=== PATIENT | female | born 1990 | race Caucasian/White ===

== ENCOUNTER 2018-03-30 16:14 | Observation (INO) ==
[2018-03-30 16:36] LABS: Amphetamine Screen,Urine Negative ng/mL (Cutoff=1000); Barbiturate Screen,Urine Negative ng/mL (Cutoff=200)
[2018-03-30 16:37] LABS: Benzodiazepines Screen,Urine Positive ng/mL (Cutoff=300); Cannabinoid Screen,Urine Negative ng/mL (Cutoff = 50); Cocaine Screen,Urine Negative ng/mL (Cutoff= 300); Opiate Screen,Urine Negative ng/mL (Cutoff=300); Phencyclidine Screen,Urine Negative ng/mL (Cutoff=25)
[2018-03-30 16:39] LABS: Bilirubin,Urine Negative (Negative); Blood,Urine Negative (Negative); Clarity,Urine Cloudy (Clear); Color,Urine Yellow (Yellow); Glucose,Urine (UA) Normal (Normal); Ketones,Urine Negative (Negative); Leukocyte Esterase,Urine Small (Negative); Nitrite,Urine Negative (Negative); Protein,Urine Negative (Neg-Trace); Specific Gravity,Urine 1.015 (1.010-1.025); Urobilinogen,Urine Normal (Normal)
[2018-03-30 16:40] LABS: Bacteria,Urine Few per hpf (None-Few); Hyaline Casts,Urine None Seen per lpf (None-Few); RBC,Urine 0-3 per hpf (0-3); Squamous Epithelial Cell,Urine Many per lpf (None-Few); WBC,Urine 15-30 per hpf (0-3)
[2018-03-30 17:33] LABS: Rubella IgG Antibody POSITIVE (POSITIVE); Varicella Zoster IgG Antibody Positive
--- NOTE | 2018-03-30 18:07 | OB/GYN Progress Note ---
Date of Encounter: 03/30/18 Time of Encounter: 18:01 - Assessment and Plan (1) 34 weeks gestation of Current Visit: Yes Status: Acute admitted for observation (2) No care in current Current Visit: Yes Status: Acute lab work and ultrasound today Patient to call office to follow up Patient declines waiting on social media strategist prior to discharge Qualifiers: Trimester: third trimester Qualified Code(s): O09.33 - Supervision of with insufficient care, third trimester (3) NST (non-stress test) reactive Current Visit: No Status: Resolved baseline 118 bpm moderate variability +15x15 accel no decels noted. Cat. 1 tracing Subjective - Subjective Principal diagnosis: Vaginal pressure, no care Interval history: Patient is a 27 y/o at 34w3d per ultrasound today. Patient presents to labor and delivery with complaints of vaginal pressure. Patient reports +FM, denies LOF, VB or contractions. Patient has not had care during this . Today all labs were drawn. Patient reports Valium 2 days ago. Patient report she is living with a friend at this time. Social work consult ordered. Patient states she also plans to go to [facility] tomorrow. Patient states pain is getting better. Antepartum ROS: movement normal, other (vaginal pressure), no loss of fluid, no vaginal bleeding, no contractions Objective - Vital Signs Vital Signs: Intake and Output 03/30/18 03/30/18 03/30/18 07:59 15:59 23:59 Other: Weight 61.5 kg Patient Weight 03/30/18 23:59 Weight 61.5 kg - Exam FHR: auscultation normal, category 1 FHR comments: 118 bpm moderate variability +15x15 accels no decels noted. No contractions noted. Cat. 1 tracing. Auscultation: bilateral: normal Abdomen: Present: normal appearance, soft, gravid Uterus: Present: normal, firm Cervical dilation: closed Cervix effacement: thick station: -1 - Labs Labs: Abnormal lab results Urine Clarity Cloudy (Clear) A 03/30/18 16:12 Ur Leukocyte Esterase Small (Negative) H 03/30/18 16:12 Urine Microscopic WBC 15-30 per hpf (0-3) H 03/30/18 16:12 Ur Squamous Epith Cells Many per lpf (None-Few) H 03/30/18 16:12 Ur Culture Indicated? NO. (NO) A 03/30/18 16:12 U Benzodiazepines Scrn Positive ng/mL ([id number]) H 03/30/18 16:12
[2018-03-30 18:19] LABS: HIV-1&2 Antibody & p24 Ag Nonreactive (Nonreactive); Hepatitis B Surface Antigen Nonreactive (Nonreactive)
== END 2018-03-30 18:47 | disposition home or self-care (01) ==
LOC: 1NENULAB
PROVIDERS: ADMIT Obstetrics & Gynecology; ATTEND Obstetrics & Gynecology

== ENCOUNTER 2018-04-24 11:34 | Inpatient (IN) ==
--- NOTE | 2018-04-24 12:12 | OB/GYN History & Physical ---
Date of Encounter: 04/24/18 Time of Encounter: 12:08 Assessment and Plan (1) and not yet delivered in third trimester Current visit: Yes Status: Acute (2) 37 weeks gestation of Current visit: Yes Status: Acute (3) Spontaneous rupture of membranes Current visit: Yes Status: Acute (4) Active labor at term Current visit: Yes Status: Acute We will admit the patient, get epidural when ready plan is to anticipate vaginal delivery (5) Substance abuse affecting in third trimester, antepartum Current visit: Yes Status: Acute History of Present Illness HPI: Ms. Figueroa is a 27 year old female 3 para 2 at 37-6/7 weeks who presented to labor and delivery by squad secondary to contractions and leaking of fluid. Patient states she woke up approximately 4 AM this morning had intercourse soon after that she started having cramping and some leaking of fluid patient states the contractions are every 2-3 minutes. Patient has not been examined in the office so we do not know if she was previously dilated. Patient is in the Subutex group. Patient states she is having gushes of fluid but not service just urine she was nitrazine and ferning positive. Patient is O +, rubella positive, GBS negative, Varicella positive. Past Med Surg Social Fam HX - Past Medical History Source: patient, old records reviewed Medical history: seizures Additional medical history: seizure x1 (pt states it was due to taking 2 different antidepressants at the same time) Psychiatric history: anxiety, depression - Past Surgical History Surgical History: other Additional surgical history: T&A, LEEP - Social History Smoking Status: Current every day smoker Smokeless Tobacco Status: No Alcohol use: none Drug use: other (On Subutex) Occupational status: unemployed Current living situation: Home - Independent Activity Level: Independent ambulation Recent Out of Country Travel Within the Last 8 Weeks: No Exposure or Possible Exposure to Illness During Travel: No - Family History Mother Adopted: No Living Status: Still Living Hx Family Cardiac Disorders: Yes (hypertension) Hx Family Endocrine Disorder: Yes (thyroid problems) - Additional Family History Additional family history: Family history noncontributory Obstetrical History - Pregnancies : 3 Para: 2 Term: 2 : 0 Ab's: 0 Livin Medications and Allergies 3 Allergy/AdvReac Type Severity Reaction Status Date / Time No Known Allergies Allergy Verified 08/17/15 21:15 Review of System OB All systems PM: reviewed and no additional remarkable complaints except as stated - Genitourinary Genitourinary: other (Been leaking fluid since 4 AM and cramping since 4 AM) Exam - Constitutional Constitutional: well developed, well nourished, moderate distress - HEENT HEENT: EOMI, PERRL, Mucus Membranes Moist - Neck Neck exam: full ROM - Lungs Respiratory exam: CTAB - Cardiovascular Cardiovascular exam: RRR - Abdomen Abdomen: Present: bowel sounds normal, gravid ( heart tones 140s reactive contractions every 2 minutes) - Vagina Vagina: Present: normal moisture (Sterile speculum exam performed and the patient revealed positive nitrazine and positive ferning) - Cervix Dilation: 4 Effacement: 80 Station: -1 - Adnexa Adnexa: bilateral: normal Results All other labs normal.
[2018-04-24] MEDS ORDERED: Metoclopramide 10 MG/2 ML VIAL IVP PRN (12:17)
[2018-04-24] MEDS ORDERED: Ondansetron 4 MG/2 ML VIAL IVP PRN (12:17)
[2018-04-24] MEDS ORDERED: Naloxone 0.4 MG/ML INJ IVP PRN (12:17)
[2018-04-24] MEDS ORDERED: Famotidine 20 MG/2 ML VIAL IVP PRN (12:17)
[2018-04-24] MEDS ORDERED: Ringers Solution, Lactated 1,000 ML IVC SCH (12:30)
[2018-04-24] MEDS ORDERED: Ringers Solution, Lactated 1,000 ML ONE (12:47)
[2018-04-24] MEDS ORDERED: Bupivacaine-MPF 0.25% 10 ML VIAL ONE (12:57)
[2018-04-24] MEDS ORDERED: Lidocaine -MPF 1% 5 ML AMPUL ONE (12:57)
[2018-04-24] MEDS ORDERED: Epidural Premix (fent/bupiv) 110 ML EP ONE (12:59)
[2018-04-24] MEDS ORDERED: Nicotine 21 MG PATCH.TD24 TD SCH (13:00)
[2018-04-24 13:05] LABS: Basophils % 0.4 %; Eosinophils # 0.1 K/mcL (0.0-0.6); Hemoglobin 10.7 g/dL (11.5-15.4); Immature Granulocytes % 0.2 % (0-4); Lymphocytes # 2.1 K/mcL (0.6-4.6); Lymphocytes % 22.3 %; Mean Corpuscular HGB Conc 33.4 g/dL (31.6-35.5); Mean Corpuscular Hemoglobin 29.1 pg (28.0-33.3); Mean Platelet Volume 9.9 fL (9.4-12.4); Monocytes # 0.6 K/mcL (0.0-1.3); Monocytes % 6.4 %; Neutrophils # 6.4 K/mcL (1.6-8.9); Platelet Count 207 K/mcL (140-400); Red Blood Count 3.68 M/mcL (3.82-4.97); Red Cell Distribution Width 12.8 % (11.5-14.5); Segmented Neutrophils % 69.7 %
--- NOTE | 2018-04-24 13:23 | Anesthesia Evaluation PreOp ---
Date of Encounter: 04/24/18 Time of Encounter: 13:00 - Past History Planned Operation: LE Cardiac History: Denies any Significant Hx Pulmonary History: Denies Any Significant HX INSOLE BUFFER History: Denies Any Significant HX Other Medical History: Denies Any Significant HX Anesthesia History: No Prior Anesthetic Complications : Yes (39 weeks) Alcohol Use: none Drug use: other (On Subutex) Medications and Allergies Buprenorphine HCl [Subutex] 12 mg SL TID 04/24/18 [History] 3 Allergy/AdvReac Type Severity Reaction Status Date / Time No Known Allergies Allergy Verified 08/17/15 21:15 - Meds/Allergy Pre-op Review Medications Reviewed: Yes Allergies Reviewed: Yes Beta Blockers on Current Med List: No Anesthesia Results - Labs 04/24/18 12:19 Anesthesia Exam O2 Sat Height 1.57 m Height: 5'2 Weight: 124 lbs NPO (# of Hours): MN Pain Scale: 0 - HEENT Pupil (Motor): Pupils equal, EOMI Mallampati: II Teeth: Normal Oral Opening: Greater than 3 - INSOLE BUFFER LOC: Oriented INSOLE BUFFER Motor: Normal RUE, Normal LUE, Normal RLE, Normal LLE, Normal Face INSOLE BUFFER Sensory: Normal: RUE, LUE, RLE, LLE, Face - Cardiac Rhythm: Regular Murmur: None JVD: No Carotid Bruit: No - Pulmonary Breath Sounds: bilateral Clear Respiratory Effort: Symmetrical Anesthesia Assess/Plan ASA Score: 2 Modified [place] Scale for Level of Consciousness: Cooperative, oriented, and tranquil Anesthetic Plan: Regional Monitoring Plan: Standard Monitors Recovery Plan: Other (Discussed Labor Epidural, agrees to proceed)
[2018-04-24 13:37] LABS: Amphetamine Screen,Urine Positive ng/mL (Cutoff=1000); Barbiturate Screen,Urine Positive ng/mL (Cutoff=200); Benzodiazepines Screen,Urine Negative ng/mL (Cutoff=200); Cannabinoid Screen,Urine Negative ng/mL (Cutoff = 50); Cocaine Screen,Urine Negative ng/mL (Cutoff= 300); Opiate Screen,Urine Negative ng/mL (Cutoff=300); Phencyclidine Screen,Urine Negative ng/mL (Cutoff=25)
--- NOTE | 2018-04-24 13:59 | Anesthesia Procedures ---
Date of Encounter: 04/24/18 Time of Encounter: 13:00 Procedures: Anesthesia - Epidural/Spinal Patient ID/Chart reviewed: Yes Patient examined: Yes OB Eval: Gestational age: 39 weeks OB Eval: : 3 OB Eval: Hx Para: 2 OB Eval: Dilated at (cm): 3 OB Eval: Contractions: Stressed pattern Consent Obtained: Yes Supplemental Oxygen: None/Room Air Site Prep: Aseptic Technique, Sterile prep and drape Patient position: upright Local Anesthetic: Lidocaine 1% Amount of Local Anesthetic used: 5 Touhy Needle Gauge: 19 Touhy Needle Depth (cm): 4 Catheter Depth at Skin (cm): 5 Test Dose Result: Negative Loading Dose: 0.25% Marcaine (mls): 10 Loading Dose Administered: Thru Touhy Needle Infusion Med: 0.125% Bupivacaine w/ 2 mcg/ml Fentanyl Infusion Rate (mls/hr): [address]: Tegaderm Interspace Used: L4-L5 Loss of Resistance (CHEL): Yes Blood: No CSF: No Paresthesia: No
[2018-04-24] MEDS ORDERED: Oxytocin 20 units/ LR 1000 mL 20 UNIT/1,000 ML BAG IVC SCH ×2 (14:45→22:32)
--- NOTE | 2018-04-24 17:41 | OB Labor Progress Note ---
Date of Encounter: 04/24/18 Time of Encounter: 17:40 Labor Progress Note - Subjective Subjective: Patient comfortable with epidural - Cervix Cervix: 7-8/70/-1 - Heart Tones Heart Tones: FHR category I - [place]: Contractions every 4-5 minutes and palpate strong - Interventions Interventions: SVE AROM a forebag-large amount of clear fluid - Plan Plan: Continue expectant management Frequent position changes with peanut ball Anticipate vaginal delivery
--- NOTE | 2018-04-24 18:27 | OB Labor Progress Note ---
Date of Encounter: 04/24/18 Time of Encounter: 18:25 Labor Progress Note - Subjective Subjective: Pt comfortable with epidural. - Cervix Cervix: 8-9/70/0 - Heart Tones Heart Tones: Baseline 110 Moderate variability Accelerations present Prolonged deceleration x 7 minutes - Cedrick called to bedside FHR Category II - [place]: Adequate IUPC - contractions every 3 minutes and palpate strong. - Interventions Interventions: SVE Position changes to left, right, and hands and knees - Plan Plan: Continue expectant management Frequent position changes Anticipate
--- NOTE | 2018-04-24 20:29 | OB/GYN Procedure Note ---
Delivery - Delivery Date: 04/24/18 Provider: Eliane Palumbo Intrapartum events: none Delivery induction: none Delivery augmentation: pitocin Delivery monitor: external FHT, external uterine, internal FHT, internal uterine Anesthesia: epidural Quantitated Blood Loss: 499 - (s) Infant A Infant Delivery Date: 04/24/18 Delivery Time: 20:00 Presentation: vertex Position: BETH Route of delivery: Gender: Male Viability: Viable Pounds: 6 Ounces: 4 Weight Gram: 2.835 kg at 1 minute: 9 at 5 mins: 9 Shoulder Dystocia: not encountered Specimens collected: cord blood Placenta: spontaneous Cord: 3 umbilical vessels - Repair Episiotomy: none Laceration Description: None - Complications Delivery complications: none Delivery comments: This is a 27-year-old G3 now P3 who was admitted for spontaneous rupture membranes. She progressed with Pitocin augmentation to the second stage of labor. She pushed for about 20 minutes. She delivered a viable male infant "Henry"BETH over an intact perineum. The was placed on the maternal abdomen where the mouth and nares were suctioned by nursing. The umbilical cord was allowed to stop pulsing completely and then was double clamped by manager combination and cut by FOB. No nuchal cord was identified. No shoulder dystocia was encountered. scores were 9 at 1 minute and 9 at 5 minutes. The weighed 6 lbs. 4 oz. (2835 g). The placenta delivered spontaneously ( Vivas), intact, with a three-vessel cord. Inspection revealed no perineal, sidewall, or cervical lacerations. The uterus was firm with no active bleeding. EBL was 499 mL. Placenta and umbilical artery blood gases were not sent. There were no complications during the procedure. Mom is stable following delivery. will be transported to NICU secondary to grunting and retractions. - Disposition Mom disposition: stable in LDR [place] disposition: taken to nursery
[2018-04-24] MEDS ORDERED: Acetaminophen 325 MG TABLET PO PRN (22:32)
[2018-04-24] MEDS ORDERED: Benzocaine/Menthol 56 GM AEROSOL SPRAY TP PRN (22:32)
[2018-04-25] MEDS: Ibuprofen 600 MG TABLET PO PRN ×2 (03:20→08:51)
[2018-04-25 05:21] LABS: Basophils % 0.4 %; Eosinophils # 0.2 K/mcL (0.0-0.6); Eosinophils % 1.4 %; Hematocrit 28.3 % (35.3-44.9); Hemoglobin 9.5 g/dL (11.5-15.4); Immature Granulocytes % 0.3 % (0-4); Lymphocytes # 2.2 K/mcL (0.6-4.6); Lymphocytes % 21.4 %; Mean Corpuscular HGB Conc 33.6 g/dL (31.6-35.5); Mean Corpuscular Hemoglobin 29.3 pg (28.0-33.3); Mean Corpuscular Volume 87.3 fL (83.0-100.0); Mean Platelet Volume 9.7 fL (9.4-12.4); Monocytes # 0.9 K/mcL (0.0-1.3); Monocytes % 8.2 %; Neutrophils # 7.1 K/mcL (1.6-8.9); Platelet Count 193 K/mcL (140-400); Red Blood Count 3.24 M/mcL (3.82-4.97); Red Cell Distribution Width 13.1 % (11.5-14.5); Segmented Neutrophils % 68.3 %
[2018-04-25 08:40] VITALS: BP 128/79
[2018-04-25] MEDS ORDERED: *HR* Buprenorphine HCl 8 MG TAB.SUBL SL SCH (09:00)
[2018-04-25] MEDS ORDERED: Prenatal Vit/FA 1 EACH TABLET PO SCH (09:00)
--- NOTE | 2018-04-25 11:15 | Discharge Summary ---
Date of Encounter: 04/25/18 Time of Encounter: 11:13 - Discharge Diagnosis (1) Vaginal delivery Priority: Primary Status: Acute Comments: Stable, pain well managed on po pain medication. does not desire to , at [facility], desires discharge. (2) anemia Priority: Secondary Status: Acute Comments: will discharge home on iron. - Discharge Medications Prescriptions: Ibuprofen [Motrin] 600 mg PO Q6HR PRN #60 tablet PRN Reason: Cramping Docusate [Colace] 100 mg PO BID #60 capsule Ferrous Sulfate 325 mg PO DAILY #60 tablet Home Medications: Buprenorphine HCl [Subutex] 12 mg SL TID 04/24/18 [History] Acetaminophen [Tylenol] 650 mg PO Q6HR PRN tablet 04/25/18 [Rx] Benzocaine/Menthol Venus [Dermoplast Venus] 1 appl TP QID PRN aerosol 04/25/18 [Rx] Docusate [Colace] 100 mg PO BID #60 capsule 04/25/18 [Rx] Ferrous Sulfate 325 mg PO DAILY #60 tablet 04/25/18 [Rx] Ibuprofen [Motrin] 600 mg PO Q6HR PRN #60 tablet 04/25/18 [Rx] Vit/FA 1 each PO DAILY tablet 04/25/18 [Rx] Allergies/Adverse Reactions: 3 Allergy/AdvReac Type Severity Reaction Status Date / Time No Known Allergies Allergy Verified 08/17/15 21:15 Data Procedures and tests throughout hospitalization: Laboratory Tests 04/24/18 04/24/18 04/25/18 12:17 12:19 04:53 WBC 9.2 10.4 RBC 3.68 L 3.24 L Hgb 10.7 L 9.5 L Hct 32.0 L 28.3 L MCV 87.0 87.3 MCH 29.1 29.3 MCHC 33.4 33.6 RDW 12.8 13.1 Plt Count 207 193 MPV 9.9 9.7 Immature Gran % 0.2 0.3 Seg Neutrophils % 69.7 68.3 Lymphocytes % 22.3 21.4 Monocytes % 6.4 8.2 Eosinophils % 1.0 1.4 Basophils % 0.4 0.4 Neutrophils # 6.4 7.1 Lymphocytes # 2.1 2.2 Monocytes # 0.6 0.9 Eosinophils # 0.1 0.2 Basophils # 0.0 0.0 Urine Opiates Screen Negative Ur Barbiturates Screen Positive H Ur Phencyclidine Scrn Negative Ur Amphetamines Screen Positive H U Benzodiazepines Scrn Negative Urine Cocaine Screen Negative U Marijuana (THC) Screen Negative Ur Drug Screen Interp See Below Labs on day of discharge: Labs from last 24 hours 04/25/18 04/24/18 04/24/18 04:53 12:19 12:17 WBC 10.4 9.2 RBC 3.24 L 3.68 L Hgb 9.5 L 10.7 L Hct 28.3 L 32.0 L MCV 87.3 87.0 MCH 29.3 29.1 MCHC 33.6 33.4 RDW 13.1 12.8 Plt Count 193 207 MPV 9.7 9.9 Immature Gran % 0.3 0.2 Seg Neutrophils % 68.3 69.7 Lymphocytes % 21.4 22.3 Monocytes % 8.2 6.4 Eosinophils % 1.4 1.0 Basophils % 0.4 0.4 Neutrophils # 7.1 6.4 Lymphocytes # 2.2 2.1 Monocytes # 0.9 0.6 Eosinophils # 0.2 0.1 Basophils # 0.0 0.0 Urine Opiates Screen Negative Ur Barbiturates Screen Positive H Ur Phencyclidine Scrn Negative Ur Amphetamines Screen Positive H U Benzodiazepines Scrn Negative Urine Cocaine Screen Negative U Marijuana (THC) Screen Negative Ur Drug Screen Interp See Below Date of admission: 04/24/18 11:34 Primary care physician: Carolina Lawrence CNP Consults: 04/24/18 22:32 Consult to Trimming Assembler [CONS] Routine Comment: Vaginal delivery, consult needed Consult to Catalyst Concentration Operator [CONS] Routine Reason for SW Consult: Late to PNC and drug use during Discharging clinician: Socorro Borges Anticipated date of discharge: 04/25/18 - Patient Status Disposition: Home, Self-Care Condition: Good Functional capacity at discharge: independent ambulation Overall status at discharge: patient is back to baseline - Discharge Instructions Instructions: Anemia (GEN) Follow Up With: Carolina Lawrence CNP [Primary Care Provider] - Dameon Mata MD [Partnered Physician] - - Diet and Activity Activity: resume usual activities as tolerated Diet: regular diet Hospital Course Reason for admission: active labor Delivery: Episiotomy: none Laceration: none Other procedures: none complications: none Discharge diagnosis: IUP at term delivered baby: male Hospital course: Delivery - Delivery Date: 04/24/18 Provider: Eliane Palumbo Intrapartum events: none Delivery induction: none Delivery augmentation: pitocin Delivery monitor: external FHT, external uterine, internal FHT, internal uterine Anesthesia: epidural Quantitated Blood Loss: 499 - (s) Infant A Delivery Date: 04/24/18 Infant Delivery Time: 20:00 Presentation: vertex Position: BETH Route of delivery: Gender: Male Viability: Viable Pounds: 6 Ounces: 4 Weight Gram: 2.835 kg at 1 minute: 9 at 5 mins: 9 Shoulder Dystocia: not encountered Specimens collected: cord blood Placenta: spontaneous Cord: 3 umbilical vessels - Repair Episiotomy: none Laceration Description: None - Complications Delivery complications: none Delivery comments: This is a 27-year-old G3 now P3 who was admitted for spontaneous rupture membranes. She progressed with Pitocin augmentation to the second stage of labor. She pushed for about 20 minutes. She delivered a viable male infant "BETH [place] over an intact perineum. The infant was placed on the maternal abdomen where the mouth and nares were suctioned by nursing. The umbilical cord was allowed to stop pulsing completely and then was double clamped by roller inspector and mender and cut by FOB. No nuchal cord was identified. No shoulder dystocia was encountered. scores were 9 at 1 minute and 9 at 5 minutes. The weighed 6 lbs. 4 oz. (2835 g). The placenta delivered spontaneously ( Vivas), intact, with a three-vessel cord. Inspection revealed no perineal, sidewall, or cervical lacerations. The uterus was firm with no active bleeding. EBL was 499 mL. Placenta and umbilical artery blood gases were not sent. There were no complications during the procedure. Mom is stable following delivery. will be transported to NICU secondary to grunting and retractions. - Disposition Mom disposition: stable in PP and appropriate for discharge. Time Attestation: Total time spent providing and/or coordinating discharge services: Time Spent: Less than 30 minutes Exam - Constitutional Vitals: Temp Pulse Resp BP Pulse Ox 98.1 F 82 16 128/79 97 04/25/18 08:10 04/25/18 08:10 04/25/18 09:00 04/25/18 08:10 04/25/18 08:10 General appearance IM: A&O X 3 - Respiratory Respiratory exam: Present: CTAB - Cardiovascular Cardiovascular exam IM: Present: RRR - GI/Abdominal GI/Abdominal exam IM: soft - Uterine Tone: Firm Uterus Position: At Umbilicus - Extremities Exam Extremities exam IM: Present: normal capillary refill, normal inspection - Neurological Exam Neurological exam: normal gait, oriented X3 - Psychiatric Additional comments: Reports good mood and appropriate for situation
== END 2018-04-25 11:57 | disposition home or self-care (01) | DRG 560 ==
LOC: 1NENULAB → OBSVTOIN 11:34 → 1NENUOBS 22:30
PROVIDERS: ADMIT Advanced Practice Midwife; ATTEND Advanced Practice Midwife